=== PATIENT | male | born 1975 | race Caucasian/White ===

== ENCOUNTER 2022-05-17 01:28 | Inpatient (IN) ==
[~2022-05-17 01:28] MED LIST: LORazepam 1 MG/1 ML SYR ONE
[2022-05-17] MEDS ORDERED: PIPERACILLIN/TAZOBACTAM 4.5 GM/120 ML BAG IV ONE (01:44)
[2022-05-17] MEDS ORDERED: SODIUM CHLORIDE 0.9% 1000ML 2,000 ML IV ONE (01:44)
[2022-05-17] MEDS ORDERED: VANCOMYCIN CONSULT ACTIVE PRN (01:44)
[2022-05-17] MEDS ORDERED: VANCOMYCIN HCL 2,250 MG in SODIUM CHLORIDE 0.9% 500 ML IV ONE (01:44)
[2022-05-17] MEDS ORDERED: ACETAMINOPHEN 500 MG TAB PO STA (01:44)
[2022-05-17 01:51] LABS: Basophils # (auto) 0.04 K/uL (0-0.2); Basophils % (auto) 0.3 %; Eosinophils % (auto) 0.7 %; Hematocrit (blood only) 43.4 % (40.1-51.0); Hemoglobin 14.9 g/dl (14.0-18.0); Immature Granulocytes # (auto) 0.09 K/uL (0.00-0.02); Immature Granulocytes % (auto) 0.6 %; Lymphocytes # (auto) 0.73 K/uL (1.2-3.4); Lymphocytes % (auto) 4.9 %; Mean Corpuscular Hemoglobin 32.4 pg (25.0-34.0); Mean Corpuscular Hgb Conc 34.3 g/dL (32.0-36.0); Mean Corpuscular Volume 94.3 fL (80.0-100.0); Mean Platelet Volume 10.3 fL (9.4-12.4); Monocytes # (auto) 0.57 K/uL (0.24-0.82); Monocytes % (auto) 3.9 %; Neutrophils # (auto) 13.25 K/uL (1.4-6.5); Neutrophils % (auto) 89.6 %; Platelet Count 172 K/uL (130-400); RDW Coefficient of Variation 14.4 % (11.5-14.5); RDW Standard Deviation 50.5 fL (36.4-46.3); White Blood Count 14.78 K/ul (4.8-10.8)
[2022-05-17 02:24] LABS: INR 1.2 (0.9-1.1); Partial Thromboplastin Ratio 1.1; Partial Thromboplastin Time 29.9 Seconds (21.0-31.0); Prothrombin Time 12.5 Seconds (9.0-12.0); Troponin I High Sensitivity 19.7 pg/ml (0-20)
[2022-05-17 02:40] LABS: Albumin Globulin Ratio 1.3 (0.9-2); Albumin Level 3.9 gm/dl (3.4-5.0); BUN Creatinine Ratio 10.6 (10-20); Bilirubin,Total 0.6 mg/dl (0.2-1.0); Calcium 7.8 mg/dl (8.5-10.1); Est GFR (African American) 54.1 ml/min; Est GFR (Non-African American) 46.7 ml/min; Magnesium 1.2 mg/dl (1.7-2.4); Potassium 3.5 mmol/L (3.5-5.1); Total Protein 6.9 gm/dl (6.0-8.3)
[2022-05-17 03:08] LABS: Adenovirus PCR Not Detected (NotDetected); Bordetella parapertussis PCR Not Detected (NotDetected); Bordetella pertussis PCR Not Detected (NotDetected); Chlamydia pneumoniae PCR Not Detected (NotDetected); Coronavirus 229E PCR Not Detected (NotDetected); Coronavirus CoV-2 (COVID19)PCR Not Detected (NotDetected); Coronavirus HKU1 PCR Not Detected (NotDetected); Coronavirus NL63 PCR Not Detected (NotDetected); Coronavirus OC43PCR Not Detected (NotDetected); Human Metapneumovirus PCR Not Detected (NotDetected); Influenza A PCR Not Detected (NotDetected); Influenza B PCR Not Detected (NotDetected); Mycoplasma pneumoniae PCR Not Detected (NotDetected); Parainfluenza Virus 1 PCR Not Detected (NotDetected); Parainfluenza Virus 2 PCR Not Detected (NotDetected); Parainfluenza Virus 3 PCR Not Detected (NotDetected); Parainfluenza Virus 4 PCR Not Detected (NotDetected); Respiratory Syncytial VirusPCR Not Detected (NotDetected); Rhinovirus/Enterovirus PCR Not Detected (NotDetected)
--- NOTE | 2022-05-17 03:27 | Emergency Department Note ---
History of Present Illness General Chief complaint: Swelling/Edema to Extremity Time Seen by Provider: 05/17/22 01:40 History of Present Illness Maximum Pain Intensity: 5 This 47-year-old presents to the ER complaining of fever with right lower leg Location: Generalized Quality: Febrile Severity: Moderate Duration: Past few days Timing: Started few days ago Context: Symptoms got worse and patient came in Modifying factors: better with rest; worse with activity Patient denies chest pain, dyspnea, headache, cough, congestion, vomiting, diarrhea. Right leg is quite swollen and erythematous. He denies any history of IV drug abuse. Home Medications Medication Instructions Recorded Confirmed Type ibuprofen 200 mg tablet 600 - 800 mg PO Q6H PRN Pain 01/01/21 01/01/21 History buprenorphine 8 mg-naloxone 2 mg 1 tab sublingual BID 05/17/22 05/17/22 History sublingual tablet Allergies Allergy/AdvReac Type Severity Reaction Status Date / Time No Known Allergies Allergy Verified 01/01/21 16:37 Past Med/Surg History Medical History History of gout Polysubstance abuse Family History Other Family history non-contributory Social History Smoking Status: Never smoker Hx Alcohol Use: Yes Alcohol type: hard liquor Hx Substance Use: Yes (on subutex) Preferred Language: Syriac Communication Ability: Effective Rn Infusion Required: No Beliefs That Will Affect Care: None marital status: Current Living Situation: Significant Other Other Information That Helps Us Care for You: No Feels Safe at Home: Yes Safety Concerns: Feels Safe At This Time Assistive Devices: None Review of Systems A total of 10 systems reviewed and were otherwise negative Physical Exam Vital Signs Vital Signs - 24 hr 05/17/22 02:30 05/17/22 02:30 05/17/22 03:00 Pulse Rate 103 H Pulse Rate from SpO2 Sensor 103 H Blood Pressure 121/66 112/64 Blood Pressure Mean 84 80 Pulse Oximetry 91 05/17/22 03:00 Pulse Rate 104 H Pulse Rate from SpO2 Sensor Blood Pressure Blood Pressure Mean Pulse Oximetry VITALS: Vitals are noted on the nurse's note and reviewed by myself. Vital signs febrile and tachycardic. GENERAL: White male ill-appearing, febrile and tachycardic SKIN: Right leg erythematous and edematous concerning for infection, the rest of the skin was without rashes, erythema, or bruising. There is no tenting of the skin. Capillary reflex less than 2 seconds. HEAD: Normocephalic atraumatic. EARS: External auditory canals clear, EYES: Pupils equal round and reactive to light and accommodation. Conjunctivae without injection, sclerae without icterus. Extraocular movements intact. NOSE: Patent, turbinates without inflammation or discharge. MOUTH: Mucous membranes moist. Pharynx without erythema or exudate. Uvula midline. Airway patent. Tongue does not deviate. NECK: Supple without nuchal rigidity. No lymphadenopathy. No thyromegaly. Cervical spine is nontender. No JVD. HEART: Regular rate and rhythm LUNGS: Clear to auscultation bilaterally without wheezes, rales or rhonchi. No retractions or accessory muscle use. ABDOMEN: Positive bowel sounds x 4. Normal tympanic percussion. Soft, nontender, without masses or organomegaly. Davies sign negative. No guarding or rebound tenderness. No CVA tenderness MUSCULOSKELETAL: No muscle atrophy noted. Pedal pulses +2 equal present bilaterally NEURO: Patient was alert and oriented to person place and time. Normal sensation to light and sharp touch. No focal neurological deficits. Course Administered Medications Buprenorphine/Naloxone (Buprenorphine/Naloxone 8/2 Mg Tab) 1 tab SL BID [facility] Stop: 06/16/22 08:59 Last Admin: 05/17/22 21:35 Dose: 1 tab Documented By: Admin: 05/17/22 08:21 Dose: 1 tab Documented By: VENESSA Diazepam (Diazepam 5 Mg Tablet) 10 mg PO Q6H [facility] Stop: 06/16/22 15:59 Last Admin: 05/17/22 21:34 Dose: Not Given Documented By: Admin: 05/17/22 16:59 Dose: 10 mg Documented By: VENESSA Enoxaparin Sodium (Enoxaparin Inj 40 Mg/0.4 Ml Syr) 40 mg SQ Q12H [facility] Stop: 06/16/22 08:59 Last Admin: 05/17/22 21:35 Dose: 40 mg Documented By: Admin: 05/17/22 08:16 Dose: 40 mg Documented By: VENESSA Gabapentin (Gabapentin 600 Mg Tab) 600 mg PO Q8H [facility] Stop: 05/18/22 19:01 Last Admin: 05/18/22 02:01 Dose: 600 mg Documented By: JETHRO Sodium Chloride (Nss 1000ml) 1,000 mls @ 125 mls/hr IV .Q8H [facility]IN Stop: 06/16/22 06:25 Last Admin: 05/17/22 23:32 Dose: 125 mls/hr Documented By: Infusion: 05/17/22 20:33 Dose: 125 mls/hr Documented By: Infusion: 05/17/22 20:30 Dose: 125 mls/hr Documented By: Admin: 05/17/22 20:02 Dose: Not Given Documented By: Infusion: 05/17/22 16:22 Dose: 0 mls/hr Documented By: Admin: 05/17/22 08:25 Dose: 125 mls/hr Documented By: VENESSA Piperacillin Sod/Tazobactam (Sod 3.375 gm/ Dextrose) 115 mls @ 28.75 mls/hr IV Q8H [facility]IV[facility]; Protocol Stop: 05/24/22 07:59 Last Admin: 05/17/22 23:30 Dose: 28.8 mls/hr Documented By: Infusion: 05/17/22 21:34 Dose: 0 mls/hr Documented By: Admin: 05/17/22 16:59 Dose: 28.8 mls/hr Documented By: Infusion: 05/17/22 12:47 Dose: 0 mls/hr Documented By: Admin: 05/17/22 08:17 Dose: 28.8 mls/hr Documented By: DTT Thiamine HCl 100 mg/ Syringe 10 mls @ 2 mls/min IV QAM KEVIN Stop: 06/16/22 08:59 Last Admin: 05/17/22 08:16 Dose: 2 mls/min Documented By: DTT Folic Acid 1 mg/ Syringe 10 mls @ 5 mls/min IV QAM KEVIN Stop: 06/16/22 08:59 Last Admin: 05/17/22 08:16 Dose: 5 mls/min Documented By: DTT Vancomycin HCl 1,000 mg/ (Sodium Chloride) 270 mls @ 200 mls/hr IV Q12H [facility]; Protocol Stop: 05/24/22 13:59 Last Admin: 05/18/22 02:00 Dose: 200 mls/hr Documented By: Infusion: 05/17/22 16:23 Dose: 0 mls/hr Documented By: Admin: 05/17/22 15:02 Dose: 200 mls/hr Documented By: VENESSA Discontinued Medications Acetaminophen (Acetaminophen 500 Mg Tab) 1,000 mg PO NOW STA Stop: 05/17/22 01:45 Last Admin: 05/17/22 01:51 Dose: 1,000 mg Documented By: CAM Gabapentin (Gabapentin 600 Mg Tab) 1,200 mg PO NOW ONE Stop: 05/17/22 07:01 Last Admin: 05/17/22 08:16 Dose: 1,200 mg Documented By: VENESSA Gabapentin (Gabapentin 600 Mg Tab) 600 mg PO Q6H [facility] Stop: 05/17/22 19:01 Last Admin: 05/17/22 19:41 Dose: 600 mg Documented By: Admin: 05/17/22 13:57 Dose: 600 mg Documented By: VENESSA Sodium Chloride (Nss 1000ml) 2,000 mls @ 999 mls/hr IV .Q2H1M ONE Stop: 05/17/22 03:44 Last Infusion: 05/17/22 05:23 Dose: 0 mls/hr Documented By: Admin: 05/17/22 01:51 Dose: 999 mls/hr Documented By: CAM Piperacillin Sod/Tazobactam Sod (Zosyn) 4.5 gm in 120 mls @ 240 mls/hr IV NOW ONE Stop: 05/17/22 02:13 Last Infusion: 05/17/22 02:28 Dose: 0 mls/hr Documented By: Admin: 05/17/22 01:51 Dose: 240 mls/hr Documented By: CAM Vancomycin HCl 2,250 mg/ (Sodium Chloride) 545 mls @ 200 mls/hr IV NOW ONE Stop: 05/17/22 04:27 Last Infusion: 05/17/22 06:29 Dose: 0 mls/hr Documented By: Admin: 05/17/22 02:28 Dose: 200 mls/hr Documented By: CAM Magnesium Sulfate/Dextrose (Magnesium Sulfate / D5w) 1 gm in 100 mls @ 100 mls/hr IV Q1H KEVIN Stop: 05/17/22 05:43 Last Admin: 05/17/22 08:47 Dose: Not Given Documented By: Infusion: 05/17/22 07:36 Dose: 0 mls/hr Documented By: Admin: 05/17/22 06:28 Dose: 100 mls/hr Documented By: CP Multivitamins 10 ml/ Thiamine HCl 100 mg/ Folic Acid 1 mg/Sodium Chloride 1,011.2 mls @ 500 mls/hr IV .Q2H2M ONE Stop: 05/17/22 08:27 Last Infusion: 05/17/22 09:56 Dose: 0 mls/hr Documented By: Admin: 05/17/22 07:22 Dose: 500 mls/hr Documented By: DTT Magnesium Sulfate/Dextrose (Magnesium Sulfate / D5w) 1 gm in 100 mls @ 100 mls/hr IV ONE ONE Stop: 05/17/22 09:14 Last Infusion: 05/17/22 09:56 Dose: 0 mls/hr Documented By: Admin: 05/17/22 08:31 Dose: 100 mls/hr Documented By: DTT Magnesium Sulfate/Dextrose (Magnesium Sulfate / D5w) 1 gm in 100 mls @ 50 mls/hr IV Q2H KEVIN Stop: 05/17/22 16:44 Last Infusion: 05/17/22 19:37 Dose: 0 mls/hr Documented By: Admin: 05/17/22 16:59 Dose: 50 mls/hr Documented By: Infusion: 05/17/22 16:58 Dose: 0 mls/hr Documented By: Infusion: 05/17/22 16:30 Dose: 0 mls/hr Documented By: Admin: 05/17/22 14:26 Dose: 50 mls/hr Documented By: Infusion: 05/17/22 14:19 Dose: 50 mls/hr Documented By: Admin: 05/17/22 12:19 Dose: 50 mls/hr Documented By: DTT Lorazepam (Lorazepam 1 Mg/1 Ml Syr) Confirm Administered Dose 1 mg .ROUTE .STK- MED ONE Stop: 05/17/22 01:18 Last Admin: 05/17/22 02:20 Dose: Not Given Documented By: CAM Medical Decision Making Medical Records Attestation: I reviewed the patient's medical records. Home Medications Current Medication List: was personally reviewed by me Laboratory Data Attestation: I reviewed the patient's lab results. Result diagrams: 05/17/22 06:57 05/17/22 06:57 Lab Results 05/17/22 05/17/22 05/17/22 Range/Units 01:35 01:35 01:35 WBC 14.78 H (4.8-10.8) K/ul RBC 4.60 L (4.63-6.08) M/uL Hgb 14.9 (14.0-18.0) g/dl Hct 43.4 (40.1-51.0) % MCV 94.3 (80.0-100.0) fL MCH 32.4 (25.0-34.0) pg MCHC 34.3 (32.0-36.0) g/dL RDW Std Deviation 50.5 H (36.4-46.3) fL RDW Coeff of Desiree 14.4 (11.5-14.5) % Plt Count 172 (130-400) K/uL MPV 10.3 (9.4-12.4) fL Immature Gran % (Auto) 0.6 % Neut % (Auto) 89.6 % Lymph % (Auto) 4.9 % [place] % (Auto) 3.9 % Eos % (Auto) 0.7 % Baso % (Auto) 0.3 % Neut # (Auto) 13.25 H (1.4-6.5) K/uL Lymph # (Auto) 0.73 L (1.2-3.4) K/uL [place] # (Auto) 0.57 (0.24-0.82) K/uL Eos # (Auto) 0.10 (0-0.50) K/uL Baso # (Auto) 0.04 (0-0.2) K/uL Immature Gran # (Auto) 0.09 H (0.00-0.02) K/uL PT 12.5 H (9.0-12.0) Seconds INR 1.2 H (0.9-1.1) APTT 29.9 (21.0-31.0) Seconds PTT Ratio 1.1 Sodium 130 L (136-145) mmol/L Potassium 3.5 (3.5-5.1) mmol/L Chloride 98 (98-107) mmol/L Carbon Dioxide 19 L (21-32) mmol/L Anion Gap 13 H (3-11) BUN 18 (6-23) mg/dl Creatinine 1.70 H (0.6-1.4) mg/dl Est Cr Clr Drug Dosing 68.0 ml/min Est GFR ( Amer) 54.1 ml/min Est GFR (Non-Af Amer) 46.7 ml/min BUN/Creatinine Ratio 10.6 (10-20) Glucose 123 H (70-99(Fasting)) mg/dl Calcium 7.8 L (8.5-10.1) mg/dl Magnesium 1.2 L (1.7-2.4) mg/dl Total Bilirubin 0.6 (0.2-1.0) mg/dl AST 25 (13-39) U/L ALT 28 (7-52) U/L Alkaline Phosphatase 44 (34-104) U/L Troponin I High Sens 19.7 (0-20) pg/ml Total Protein 6.9 (6.0-8.3) gm/dl Albumin 3.9 (3.4-5.0) gm/dl Globulin 3.0 (2.5-4.0) gm/dl Albumin/Globulin Ratio 1.3 (0.9-2) Procalcitonin (0-0.5) ng/ml Ethyl Alcohol mg/dL (<10.0) mg/dl Adenovirus (PCR) (NotDetected) B. pertussis DNA (PCR) (NotDetected) B.parapertussis DNA PCR (NotDetected) C. pneumoniae DNA (PCR) (NotDetected) Coronavirus OC43 (PCR) (NotDetected) Coronavirus HKU1 (PCR) (NotDetected) Coronavirus 229E (PCR) (NotDetected) SARS-CoV-2 (PCR) (NotDetected) Coronavirus NL63 (PCR) (NotDetected) Human Metapneumovir PCR (NotDetected) Influenza Type A (PCR) (NotDetected) Influenza Type B (PCR) (NotDetected) M. pneumoniae (PCR) (NotDetected) Parainfluenza 1 (PCR) (NotDetected) Parainfluenza 2 (PCR) (NotDetected) Parainfluenza 3 (PCR) (NotDetected) Parainfluenza 4 (PCR) (NotDetected) RSV (PCR) (NotDetected) Entero/Rhino (PCR) (NotDetected) 05/17/22 05/17/22 05/17/22 Range/Units 01:35 01:50 02:38 WBC (4.8-10.8) K/ul RBC (4.63-6.08) M/uL Hgb (14.0-18.0) g/dl Hct (40.1-51.0) % MCV (80.0-100.0) fL MCH (25.0-34.0) pg MCHC (32.0-36.0) g/dL RDW Std Deviation (36.4-46.3) fL RDW Coeff of Desiree (11.5-14.5) % Plt Count (130-400) K/uL MPV (9.4-12.4) fL Immature Gran % (Auto) % Neut % (Auto) % Lymph % (Auto) % [place] % (Auto) % Eos % (Auto) % Baso % (Auto) % Neut # (Auto) (1.4-6.5) K/uL Lymph # (Auto) (1.2-3.4) K/uL [place] # (Auto) (0.24-0.82) K/uL Eos # (Auto) (0-0.50) K/uL Baso # (Auto) (0-0.2) K/uL Immature Gran # (Auto) (0.00-0.02) K/uL PT (9.0-12.0) Seconds INR (0.9-1.1) APTT (21.0-31.0) Seconds PTT Ratio Sodium (136-145) mmol/L Potassium (3.5-5.1) mmol/L Chloride (98-107) mmol/L Carbon Dioxide (21-32) mmol/L Anion Gap (3-11) BUN (6-23) mg/dl Creatinine (0.6-1.4) mg/dl Est Cr Clr Drug Dosing ml/min Est GFR ( Amer) ml/min Est GFR (Non-Af Amer) ml/min BUN/Creatinine Ratio (10-20) Glucose (70-99(Fasting)) mg/dl Calcium (8.5-10.1) mg/dl Magnesium (1.7-2.4) mg/dl Total Bilirubin (0.2-1.0) mg/dl AST (13-39) U/L ALT (7-52) U/L Alkaline Phosphatase (34-104) U/L Troponin I High Sens (0-20) pg/ml Total Protein (6.0-8.3) gm/dl Albumin (3.4-5.0) gm/dl Globulin (2.5-4.0) gm/dl Albumin/Globulin Ratio (0.9-2) Procalcitonin 4.55 H (0-0.5) ng/ml Ethyl Alcohol mg/dL 86.9 H (<10.0) mg/dl Adenovirus (PCR) Not Detected (NotDetected) B. pertussis DNA (PCR) Not Detected (NotDetected) B.parapertussis DNA PCR Not Detected (NotDetected) C. pneumoniae DNA (PCR) Not Detected (NotDetected) Coronavirus OC43 (PCR) Not Detected (NotDetected) Coronavirus HKU1 (PCR) Not Detected (NotDetected) Coronavirus 229E (PCR) Not Detected (NotDetected) SARS-CoV-2 (PCR) Not Detected (NotDetected) Coronavirus NL63 (PCR) Not Detected (NotDetected) Human Metapneumovir PCR Not Detected (NotDetected) Influenza Type A (PCR) Not Detected (NotDetected) Influenza Type B (PCR) Not Detected (NotDetected) M. pneumoniae (PCR) Not Detected (NotDetected) Parainfluenza 1 (PCR) Not Detected (NotDetected) Parainfluenza 2 (PCR) Not Detected (NotDetected) Parainfluenza 3 (PCR) Not Detected (NotDetected) Parainfluenza 4 (PCR) Not Detected (NotDetected) RSV (PCR) Not Detected (NotDetected) Entero/Rhino (PCR) Not Detected (NotDetected) Imaging Data Attestation: I personally reviewed and interpreted this imaging study as follows: Radiologist's Impression: Chest X-Ray 05/17/22 01:45 XR chest 1V portable CLINICAL HISTORY: fever/sepsis TECHNIQUE: Single frontal radiograph of the chest was obtained. Comparison: None available at the time of this dictation. FINDINGS: No lines and tubes are seen. Cardiomegaly is noted. The lungs are clear. No evidence of pleural effusion or pneumothorax. IMPRESSION: No acute chest disease. ACT 112: Negative or not required by law. Electronically signed by: Jabari Mcdaniel M.D. 05/17/2022 3:57 PM [facility] Narrative Prior records/ancillary studies reviewed. Triage Nursing notes reviewed. Additional history obtained from family. The patient's history was concerning for fever and leg infection. Differential diagnosis: Etiologies such as sepsis, UTI, pneumonia, metabolic, electrolyte abnormalities, cardiac sources, intracerebral event, toxicologic, neurologic, as well as others were entertained. Physical examination: As above. Pertinent findings were fever and leg infection. Vital signs reviewed and revealed febrile and tachycardic. ER treatment provided: IV fluid resuscitation with Normal saline solution, IV fluid Blood and urine cultures Antibiotics: Zosyn vancomycin An order was placed for continuous cardiac monitoring. The monitor shows a rate of 60-1 50 with a sinus rhythm. On reassessment the patient vital signs improved. Diagnostics interpretation by me: ECG: Ordered for sepsis EKG: Normal sinus, left axis, incomplete right bundle, rate of 105. Impression sinus tachycardia incomplete right bundle with left axis deviation interpreted by myself I think arrhythmia is unlikely. EKG shows no interval abnormalities such as QT prolongation or WPW. There are no findings to suggest Brugada syndrome. Cardiac monitoring in the emergency department reveals no tachycardic or bradycardic dysrhythmia. Hypertrophic cardiomyopathy was considered but there are no clear historical elements pointing toward this. EKG is not suggestive. The QRS voltage is not extremely large The labs revealed leukocytosis on CBC. Chemistry panel revealed low magnesium. LFTs revealed. Cardiac enzymes were negative troponin. Elevated procalcitonin Blood and urine cultures are pending. Imaging studies: Chest xray revealed no acute consolidation, pneumothorax or free air per my interpretation Consultation: A consultation was placed with the hospitalist. The case was discussed and diagnostics were reviewed. The patient was evaluated in the ER for further treatment. Exam and history seem consistent with sepsis most likely from the right leg. Medicine was consulted. Patient will be evaluated for admission. Patient was immediately started on antibiotics. He was given Tylenol. He was reassessed multiple times. 2 lines were placed. Patient is agreeable treatment plan of admission. He adamantly denied any history of IV drug abuse. Impression & Plan Sepsis, Cellulitis of leg, right Discharge Plan Visit Data Chief Complaint: Swelling/Edema to Extremity ED Provider: Yulissa Perkins ED Midlevel Provider: Angela Sloan Discharge Problem: Sepsis, Cellulitis of leg, right Patient Disposition: Admitted As Inpatient Condition: Fair Discharge Instructions Interventions: ED Discharge Assessment Last Done: 05/17/22 06:28 : Sepsis Qualifiers: Sepsis type: sepsis due to unspecified organism Sepsis acute organ dysfunction status: unspecified Qualified Code(s): A41.9 - Sepsis, unspecified organism
[2022-05-17] MEDS ORDERED: MULTI-VITAMIN INFUSION 10 ML, THIAMINE HCL 100 MG, FOLIC ACID 1 MG in SODIUM CHLORIDE 0... IV ONE (06:26)
[2022-05-17] MEDS ORDERED: NITROGLYCERIN SL 0.4 MG/TAB TAB SL PRN (06:26)
[2022-05-17] MEDS ORDERED: GABAPENTIN 1200MG ALCOHOL WITHDRAWAL LOAD PO STA (06:26)
[2022-05-17] MEDS ORDERED: LORazepam 3 MG in SYRINGE 0 ML IV PRN (06:26)
[2022-05-17] MEDS ORDERED: LORazepam 2 MG in SYRINGE 0 ML IV PRN (06:26)
[2022-05-17] MEDS ORDERED: Ativan IV Alcohol Withdrawal--Active Protocol IV PRN (06:26)
[2022-05-17] MEDS ORDERED: LORazepam 1 MG in SYRINGE 0 ML IV PRN (06:26)
[2022-05-17] MEDS ORDERED: ACETAMINOPHEN 325 MG TAB PO PRN (06:26)
[2022-05-17] MEDS: MAGNESIUM SULFATE / D5W 1 GM/100 ML BAG IV SCH ×5 (06:28→16:59)
[2022-05-17 06:56] LABS: Appearance Urine Clear (Clear); Bilirubin Urine Negative (Negative); Blood Urine Trace (Negative); Color Urine Yellow; Epithelial Cell Urine Auto 0-5 /lpf (0-5); Glucose Urine UA Negative (Negative); Ketones Urine Trace (Negative); Leukocyte Esterase Urine Negative (Negative); Nitrite Urine Negative (Negative); Protein Urine 1+ (Negative); Urobilinogen Urine Negative (Negative)
[2022-05-17] MEDS ORDERED: GABAPENTIN 600 MG TAB PO ONE (07:00)
[2022-05-17 07:28] LABS: Bacteria Urine Automated 1+ (Negative); RBC Urine Automated 0-4 /hpf (0-4)
[2022-05-17 07:32] LABS: Hematocrit (blood only) 40.9 % (40.1-51.0); Hemoglobin 13.8 g/dl (14.0-18.0); Mean Corpuscular Hemoglobin 31.9 pg (25.0-34.0); Mean Corpuscular Hgb Conc 33.7 g/dL (32.0-36.0); Mean Corpuscular Volume 94.5 fL (80.0-100.0); Mean Platelet Volume 10.5 fL (9.4-12.4); Platelet Count 178 K/uL (130-400); RDW Coefficient of Variation 14.4 % (11.5-14.5); RDW Standard Deviation 50.4 fL (36.4-46.3); Red Blood Count 4.33 M/uL (4.63-6.08); White Blood Count 14.64 K/ul (4.8-10.8)
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
[2022-05-17 07:53] LABS: Basophils # (auto) 0.02 K/uL (0-0.2); Basophils % (auto) 0.1 %; Dohle Bodies 1+; Echinocytes 1+; Immature Granulocytes # (auto) 0.08 K/uL (0.00-0.02); Immature Granulocytes % (auto) 0.5 %; Lymphocytes # (auto) 0.59 K/uL (1.2-3.4); Monocytes # (auto) 0.68 K/uL (0.24-0.82); Monocytes % (auto) 4.6 %; Neutrophils # (auto) 13.27 K/uL (1.4-6.5); Neutrophils % (auto) 90.8 %
[2022-05-17 07:58] LABS: BUN Creatinine Ratio 11.2 (10-20); Calcium 7.1 mg/dl (8.5-10.1); Creatinine Clr Calc Pharmacy 82.2 ml/min; Est GFR (African American) 66.6 ml/min; Est GFR (Non-African American) 57.5 ml/min; Magnesium 1.3 mg/dl (1.7-2.4); Potassium 3.4 mmol/L (3.5-5.1)
[2022-05-17] MEDS ORDERED: MAGNESIUM SULFATE / D5W 1 GM/100 ML BAG IV ONE (08:15)
[2022-05-17] MEDS: THIAMINE HCL 100 MG in SYRINGE 9 ML IV SCH (08:16)
[2022-05-17] MEDS: FOLIC ACID 1 MG in SYRINGE 9.8 ML IV SCH (08:16)
[2022-05-17] MEDS: ENOXAPARIN INJ 40 MG/0.4 ML SYR SQ SCH ×2 (08:16→21:35)
[2022-05-17] MEDS: PIPERACILLIN/TAZOBACTAM 3.375 GM in DEXTROSE 5% 100 ML IV SCH ×3 (08:17→23:30)
--- NOTE | 2022-05-17 08:20 | Ultrasound Report ---
US venous doppler LE BI CLINICAL HISTORY: pain/swelling TECHNIQUE: Bilateral lower extremity real-time compression venous ultrasound with Color Doppler imagi ng. Utilizing real-time ultrasonic imaging multiple real time high-resolution ultrasonic images with compression and noncompression maneuvers of the deep venous system in addition to color doppler imagi ng were performed from the common femoral vein through the proximal calf veins. COMPARISON: None available at the time of this dictation. FINDINGS: Currently there is normal compressibility of the deep venous system from the common femoral vein thro ugh the proximal calf veins. Prominent lymph nodes are seen in the right groin with fatty griffin, durga uring up to 3.6 x 1.7 x 2.8 cm. Bilateral soft tissue edema in the calves, right greater than left. Impression: No evidence of deep venous thrombus. ACT 112: Negative or not required by law. Electronically signed by: Jabari Mcdaniel M.D. 05/17/2022 8:18 AM
[2022-05-17] MEDS: BUPRENORPHINE/NALOXONE 8/2 MG TAB SL SCH ×2 (08:21→21:35)
[2022-05-17] MEDS: SODIUM CHLORIDE 0.9% 1000ML 1,000 ML IV SCH ×4 (08:25→23:32)
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
--- NOTE | 2022-05-17 11:24 | Electrocardiogram Report ---
Test Reason : Blood Pressure : / mmHG Vent. Rate : 105 BPM Atrial Rate : 105 BPM P-R Int : 152 ms QRS Dur : 094 ms QT Int : 334 ms P-R-T Axes : 039 -45 021 degrees QTc Int : 441 ms Sinus tachycardia Left axis deviation Incomplete right bundle branch block Poor R wave progression, consider anterior LA vs. lead placement vs. LVH Abnormal ECG When compared with ECG of 01-JAN-2021 18:30, Vent. rate has increased BY 42 BPM Incomplete right bundle branch block is now Present R wave progression more gradual Confirmed by Javier Stone ([id number] on 05/17/2022 11:24:21 AM Referred By: NO PCP Confirmed By:Javier Stone
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
[2022-05-17] MEDS: GABAPENTIN 600 MG TAB PO SCH ×2 (13:57→19:41)
[2022-05-17] MEDS: VANCOMYCIN HCL 1,000 MG in SODIUM CHLORIDE 0.9% 250 ML IV SCH (15:02)
--- NOTE | 2022-05-17 15:58 | XRay Report ---
XR chest 1V portable CLINICAL HISTORY: fever/sepsis TECHNIQUE: Single frontal radiograph of the chest was obtained. Comparison: None available at the time of this dictation. FINDINGS: No lines and tubes are seen. Cardiomegaly is noted. The lungs are clear. No evidence of pleural effus ion or pneumothorax. IMPRESSION: No acute chest disease. ACT 112: Negative or not required by law. Electronically signed by: Jabari Mcdaniel M.D. 05/17/2022 3:57 PM
[2022-05-17] MEDS: diazePAM 5 MG TABLET PO SCH ×2 (16:59→21:34)
[2022-05-17 18:36] LABS: Creatinine Urine Random 78.3 mg/dl; Protein Creatinine Ratio Urine 0.5 (0-0.2)
--- NOTE | 2022-05-17 19:57 | CT Scan Report ---
CT tib/fib RT wo con CLINICAL HISTORY: Concern for abscess TECHNIQUE: Multidetector row helical CT of the right lower extremity was performed without intravenou s contrast. Coronal and sagittal reformations were obtained. Automated dose lowering techniques and/o r adjustment according to patient size were utilized for this examination. Comparison: Comparison is made to bone survey ultrasound 05/17/2022 FINDINGS: The osseous structures are without fracture or dislocation. The joint spaces are maintained. No joint effusion is seen. Soft tissue stranding is seen. No evidence of drainable fluid collection. Degener ative changes are seen within the bones but there are no focal erosions. IMPRESSION: Soft tissue stranding is seen compatible with cellulitis but there is no evidence of abscess or osteo myelitis. ACT 112: Negative or not required by law. Electronically signed by: Jabari Mcdaniel M.D. 05/17/2022 7:55 PM
--- NOTE | 2022-05-17 22:35 | Ultrasound Report ---
US renal/blad retro comp CLINICAL HISTORY: FRANCIS TECHNIQUE: Multiple sonographic real-time images of the kidneys and bladder were obtained. COMPARISON: Comparison is made to FINDINGS: The right kidney measures 12.9 cm in length, and the left kidney measures 11.0 cm in length. The right kidney is normal in size, contour, cortical thickness, and echogenicity. No hydronephrosis is identified. No renal lesion is identified. No perinephric fluid collection is seen. Lobular contour of the left kidney is seen. An inferior pole cyst measures 1.0 x 1.4 x 1.0 cm. A few vascular calcifications are seen. Questionable nonobstructive stone is noted in the collecting system . No hydronephrosis is identified. No renal lesion is identified. No perinephric fluid collection i s seen. The bladder is partially distended. No large intraluminal mass is seen. IMPRESSION: Unremarkable examination and in particular no evidence of hydronephrosis. Lobular contour of the left kidney with possible nonobstructive stone noted. ACT 112: Negative or not required by law. Electronically signed by: Jabari Mcdaniel M.D. 05/17/2022 10:34 PM
[2022-05-18] MEDS: VANCOMYCIN HCL 1,000 MG in SODIUM CHLORIDE 0.9% 250 ML IV SCH (02:00)
[2022-05-18] MEDS: GABAPENTIN 600 MG TAB PO SCH ×3 (02:01→19:26)
[2022-05-18] MEDS: diazePAM 5 MG TABLET PO SCH ×3 (03:38→17:33)
[2022-05-18] MEDS: SODIUM CHLORIDE 0.9% 1000ML 1,000 ML IV SCH ×3 (06:35→21:32)
[2022-05-18 07:50] LABS: Hematocrit (blood only) 38.3 % (40.1-51.0); Mean Corpuscular Hgb Conc 33.9 g/dL (32.0-36.0); Mean Corpuscular Volume 94.3 fL (80.0-100.0); Mean Platelet Volume 10.5 fL (9.4-12.4); Platelet Count 128 K/uL (130-400); RDW Coefficient of Variation 14.7 % (11.5-14.5); RDW Standard Deviation 51.6 fL (36.4-46.3); Red Blood Count 4.06 M/uL (4.63-6.08); White Blood Count 9.26 K/ul (4.8-10.8)
[2022-05-18 08:10] LABS: Basophils # (auto) 0.04 K/uL (0-0.2); Basophils % (auto) 0.4 %; Echinocytes 1+; Eosinophils # (auto) 0.05 K/uL (0-0.50); Eosinophils % (auto) 0.5 %; Immature Granulocytes # (auto) 0.06 K/uL (0.00-0.02); Immature Granulocytes % (auto) 0.6 %; Lymphocytes # (auto) 0.83 K/uL (1.2-3.4); Monocytes # (auto) 0.86 K/uL (0.24-0.82); Monocytes % (auto) 9.3 %; Neutrophils # (auto) 7.42 K/uL (1.4-6.5); Neutrophils % (auto) 80.2 %
[2022-05-18 08:20] LABS: BUN Creatinine Ratio 8.7 (10-20); C Reactive Protein 26.6 mg/dl (0-0.5); Calcium 6.8 mg/dl (8.5-10.1); Est GFR (African American) 37.7 ml/min; Est GFR (Non-African American) 32.5 ml/min; Potassium 3.5 mmol/L (3.5-5.1)
[2022-05-18] MEDS: PIPERACILLIN/TAZOBACTAM 3.375 GM in DEXTROSE 5% 100 ML IV SCH (08:57)
[2022-05-18] MEDS: FOLIC ACID 1 MG in SYRINGE 9.8 ML IV SCH (08:58)
[2022-05-18] MEDS: THIAMINE HCL 100 MG in SYRINGE 9 ML IV SCH (08:59)
[2022-05-18] MEDS: ENOXAPARIN INJ 40 MG/0.4 ML SYR SQ SCH ×2 (09:00→21:31)
[2022-05-18] MEDS: BUPRENORPHINE/NALOXONE 8/2 MG TAB SL SCH ×2 (09:23→21:31)
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
[2022-05-18] MEDS: DOXYCYCLINE HYCLATE 100 MG CAP PO SCH ×2 (13:36→21:30)
[2022-05-18] MEDS: ceFAZolin 2000MG 2,000 MG/15 ML SYR IV SCH ×2 (16:15→23:47)
[2022-05-18] MEDS ORDERED: diazePAM 5 MG TABLET PO SCH (17:30)
[2022-05-19] MEDS: diazePAM 5 MG TABLET PO SCH ×3 (01:33→20:42)
[2022-05-19] MEDS: SODIUM CHLORIDE 0.9% 1000ML 1,000 ML IV SCH ×2 (05:35→15:51)
[2022-05-19 06:39] LABS: Hematocrit (blood only) 37.7 % (40.1-51.0); Hemoglobin 12.6 g/dl (14.0-18.0); Mean Corpuscular Hemoglobin 31.7 pg (25.0-34.0); Mean Corpuscular Hgb Conc 33.4 g/dL (32.0-36.0); Mean Platelet Volume 10.2 fL (9.4-12.4); Platelet Count 106 K/uL (130-400); RDW Coefficient of Variation 14.9 % (11.5-14.5); RDW Standard Deviation 52.7 fL (36.4-46.3); Red Blood Count 3.97 M/uL (4.63-6.08); White Blood Count 8.88 K/ul (4.8-10.8)
[2022-05-19 06:52] LABS: Basophils # (auto) 0.04 K/uL (0-0.2); Basophils % (auto) 0.5 %; Echinocytes 1+; Eosinophils % (auto) 1.1 %; Immature Granulocytes % (auto) 1.1 %; Lymphocytes # (auto) 0.81 K/uL (1.2-3.4); Lymphocytes % (auto) 9.1 %; Monocytes # (auto) 0.89 K/uL (0.24-0.82); Neutrophils # (auto) 6.94 K/uL (1.4-6.5); Neutrophils % (auto) 78.2 %; Polychromasia 1+
[2022-05-19 06:53] LABS: Albumin Globulin Ratio 1.1 (0.9-2); Albumin Level 3.2 gm/dl (3.4-5.0); BUN Creatinine Ratio 8.1 (10-20); Bilirubin,Total 0.8 mg/dl (0.2-1.0); Calcium 6.8 mg/dl (8.5-10.1); Creatinine Clr Calc Pharmacy 46.4 ml/min; Est GFR (African American) 32.7 ml/min; Est GFR (Non-African American) 28.2 ml/min; Globulin 2.9 gm/dl (2.5-4.0); Potassium 3.9 mmol/L (3.5-5.1); Total Protein 6.1 gm/dl (6.0-8.3)
[2022-05-19] MEDS: BUPRENORPHINE/NALOXONE 8/2 MG TAB SL SCH ×2 (08:01→20:42)
[2022-05-19] MEDS: GABAPENTIN 600 MG TAB PO SCH ×2 (08:01→18:20)
[2022-05-19] MEDS: DOXYCYCLINE HYCLATE 100 MG CAP PO SCH ×2 (08:01→20:42)
[2022-05-19] MEDS: THIAMINE HCL 100 MG in SYRINGE 9 ML IV SCH (08:02)
[2022-05-19] MEDS: ENOXAPARIN INJ 40 MG/0.4 ML SYR SQ SCH ×2 (08:02→20:42)
[2022-05-19] MEDS: FOLIC ACID 1 MG in SYRINGE 9.8 ML IV SCH (08:02)
[2022-05-19] MEDS: ceFAZolin 2000MG 2,000 MG/15 ML SYR IV SCH ×3 (08:09→23:33)
[2022-05-19] MEDS ORDERED: STAT IV STA (10:50)
[2022-05-19] MEDS ORDERED: CALCIUM GLUCONATE 10% 2,000 MG in DEXTROSE 5% 50 ML IV ONE (11:00)
[2022-05-19] MEDS: MAGNESIUM SULFATE / D5W 1 GM/100 ML BAG IV SCH ×2 (11:18→13:33)
--- NOTE | 2022-05-19 11:44 | Consultation Report ---
NEPHROLOGY CONSULTATION NOTE DATE OF SERVICE: 05/19/2022. REASON FOR CONSULTATION: Acute renal failure. HISTORY OF PRESENT ILLNESS: The patient is a 47-year-old male who does not have a lot of medical records and does not have a stable PCP, but appears that he already has somewhat abnormal baseline creatinine. He presented to the hospital 2 days ago with fever, chills, right lower extremity edema, pain and redness. The patient has known hypertension, but he is not taking any medication. He does drink bourbon every night. To his knowledge, he has never known to have any kidney disease. In the Emergency Department, his blood pressure was fine, but he was tachycardic and definitely had fever. His white count was elevated. Magnesium was low. Alcohol level was high. Since being admitted, the patient has received IV fluid as well as alcohol withdrawal protocol, but despite that creatinine has actually got worse and is now up to 2.58. He is making urine and yesterday in a 24-hour time period, he made 2110 mL of urine. Currently, he is getting Ancef and doxycycline for antibiotics. He did receive vancomycin on the day of admission, but not now. Urine was checked and he does have some trace blood and trace protein. Renal ultrasound already done and does not have any hydronephrosis. PAST MEDICAL AND SURGICAL HISTORY: Includes ongoing alcoholism, obesity, hypertension, but not taking any medication. Small skin cancer lesion excision, right ankle surgery. MEDICATIONS: At home include buprenorphine 1 tablet sublingual twice daily. FAMILY HISTORY: No renal disease or dialysis. SOCIAL HISTORY: Smoking many years ago, but he drinks bourbon whiskey 4-5 shots every day. Denies drugs. Denies marijuana. REVIEW OF SYSTEMS: As detailed in HPI; unless stated otherwise, 12 systems reviewed and negative. ALLERGIES: No known drug allergies. PHYSICAL EXAMINATION: GENERAL: Young white male who is awake, alert, oriented x3. He is somewhat obese. VITAL SIGNS: Blood pressure 129/72, pulse rate 89, temperature 37.1, 95% on room air. HEENT: Mucous membranes are moist. NECK: Supple. No jugular venous distention. CHEST: Bilaterally clear to auscultation. CARDIOVASCULAR: S1 and S2, regular. ABDOMEN: Soft, nontender, obese. EXTREMITIES: Show 1+ edema with significant redness in his right lower extremity, which according to the patient, is new. Left extremity has trace edema, but no redness. NEUROLOGIC: Awake, alert and oriented. Normal speech. Moving all 4 extremities. LABORATORY TEST: Creatinine was 1.43 two days ago, but since then it has gone up to 2.29 and then now today is 2.58, sodium 135, potassium 3.9, calcium is low at 6.8. Magnesium was low at 1.3, albumin 3.2. WBC count is 8.8, hemoglobin 12.6, platelet count 106. Urine at admission showed trace blood, 1+ protein, urine sodium 30. ASSESSMENT AND PLAN: A 47-year-old male, now admitted with possible cellulitis of the right lower extremity with sepsis-like syndrome and now has acute renal failure for which I have been consulted. 1. Acute renal failure: This is toxic ATN in the setting of infection/antibiotics. He is definitely not volume depleted and we do need too aggressively give him more IV fluid. We can cut down the fluid rate to 75 mL per hour and even that is questionable. His calcium is low and almost certainly related with low magnesium from his ongoing daily alcohol use. I would give him 2 grams of IV magnesium as well as 2 gram of calcium gluconate today. It is not clear how far the kidney function will decline. However, given his young age and heavy buildup, he can tolerate a much, much higher creatinine before we have to consider dialysis. No further workup is needed as we have already done renal ultrasound and he does not have hydronephrosis. Thank you very much for the consult. Job ID: [id number] [facility] CENTERAmy
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
[2022-05-20] MEDS: SODIUM CHLORIDE 0.9% 1000ML 1,000 ML IV SCH ×3 (05:11→19:40)
[2022-05-20 06:55] LABS: Hematocrit (blood only) 35.8 % (40.1-51.0); Hemoglobin 12.5 g/dl (14.0-18.0); Mean Corpuscular Hgb Conc 34.9 g/dL (32.0-36.0); Mean Corpuscular Volume 91.6 fL (80.0-100.0); Mean Platelet Volume 11.5 fL (9.4-12.4); Platelet Count 114 K/uL (130-400); RDW Coefficient of Variation 14.6 % (11.5-14.5); RDW Standard Deviation 49.2 fL (36.4-46.3); Red Blood Count 3.91 M/uL (4.63-6.08); White Blood Count 10.06 K/ul (4.8-10.8)
[2022-05-20 07:11] LABS: BUN Creatinine Ratio 8.4 (10-20); Calcium 7.4 mg/dl (8.5-10.1); Creatinine Clr Calc Pharmacy 59.8 ml/min; Est GFR (African American) 43.6 ml/min; Est GFR (Non-African American) 37.6 ml/min; Potassium 3.8 mmol/L (3.5-5.1)
[2022-05-20 07:14] LABS: Phosphorus 1.5 mg/dl (2.5-4.9)
[2022-05-20] MEDS ORDERED: POTASSIUM PHOS 3 MMOL/1 ML INFUSION IV STA (07:28)
[2022-05-20] MEDS ORDERED: POTASSIUM PHOSPHATE 30 MMOL in SODIUM CHLORIDE 0.9% 500 ML IV ONE (08:00)
[2022-05-20] MEDS: FOLIC ACID 1 MG in SYRINGE 9.8 ML IV SCH (08:41)
[2022-05-20] MEDS: THIAMINE HCL 100 MG in SYRINGE 9 ML IV SCH (08:42)
[2022-05-20] MEDS: DOXYCYCLINE HYCLATE 100 MG CAP PO SCH ×2 (08:43→20:22)
[2022-05-20] MEDS: diazePAM 5 MG TABLET PO SCH (08:43)
[2022-05-20] MEDS: BUPRENORPHINE/NALOXONE 8/2 MG TAB SL SCH ×2 (08:43→20:22)
[2022-05-20] MEDS: ENOXAPARIN INJ 40 MG/0.4 ML SYR SQ SCH ×2 (08:43→20:22)
[2022-05-20] MEDS: ceFAZolin 2000MG 2,000 MG/15 ML SYR IV SCH ×2 (08:43→16:20)
--- NOTE | 2022-05-20 10:38 | Nephrology Progress Note ---
Date of Service May 20, 2022 Assessment & Plan Admission and Anticipated Discharge Date Admission Date: May 17, 2022 Subjective S--eager to go home. No new issues. PHYSICAL EXAMINATION: GENERAL: Young white male who is awake, alert, oriented x3. He is somewhat obese. HEENT: Mucous membranes are moist. NECK: Supple. No jugular venous distention. CHEST: Bilaterally clear to auscultation. CARDIOVASCULAR: S1 and S2, regular. ABDOMEN: Soft, nontender, obese. EXTREMITIES: Show 1+ edema with significant redness in his right lower extremity, which according to the patient, is new. Left extremity has trace edema, but no redness. NEUROLOGIC: Awake, alert and oriented. Normal speech. Moving all 4 extremities. LABORATORY TEST: Creatinine was 1.43 few days ago, but since then it has gone up to 2.29 and then 2.58. But today Creat is down a bit. Low phos. ASSESSMENT AND PLAN: A 47-year-old male, now admitted with possible cellulitis of the right lower extremity with sepsis-like syndrome and now has acute renal failure for which I have been consulted. 1. Acute renal failure: This is toxic ATN in the setting of infection/antibiotics. Creat peaked and now trending down. His calcium is low and almost certainly related with low magnesium from his ongoing daily alcohol use. No further workup is needed as we have already done renal ultrasound and he does not have hydronephrosis. Given how low his mag and phos has been almost certain that his daily alcohol intake is massive and lot more than he is admitting. Agree with kphos 30 mmol ARF will get better from now on. Prefer he stays one more day to correct lytes but if he really wants to go home we can send with oral K phos and Oral mag. renal f/u in 1 week. Did not really have any regular medical care before admission. Results & Data ([facility]) Vital Signs (Past 12 Hours) Vital Signs Temp Pulse Pulse Resp BP BP Pulse Ox 05/20/22 08:00 36.6 C 88 18 147/85 H 92 05/20/22 08:00 98 H 05/20/22 08:00 05/20/22 03:06 37.3 C 91 H 18 141/78 H 91 05/19/22 23:38 36.6 C 84 18 132/84 94 O2 Del Method 05/20/22 08:00 Room Air 05/20/22 08:00 05/20/22 08:00 Room Air 05/20/22 03:06 Room Air 05/19/22 23:38 Room Air
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
[2022-05-20] MEDS ORDERED: GABAPENTIN 600 MG TAB PO SCH (19:00)
[2022-05-21] MEDS: ceFAZolin 2000MG 2,000 MG/15 ML SYR IV SCH ×3 (00:20→16:46)
[2022-05-21] MEDS: SODIUM CHLORIDE 0.9% 1000ML 1,000 ML IV SCH (04:48)
[2022-05-21 06:51] LABS: Hematocrit (blood only) 35.7 % (40.1-51.0); Mean Corpuscular Hemoglobin 31.8 pg (25.0-34.0); Mean Corpuscular Hgb Conc 33.6 g/dL (32.0-36.0); Mean Corpuscular Volume 94.7 fL (80.0-100.0); Mean Platelet Volume 11.8 fL (9.4-12.4); Nucleated RBC # (auto) 0.02 K/uL (0-0); Nucleated RBC % (auto) 0.2 %; Platelet Count 158 K/uL (130-400); RDW Coefficient of Variation 14.6 % (11.5-14.5); RDW Standard Deviation 51.2 fL (36.4-46.3); Red Blood Count 3.77 M/uL (4.63-6.08); White Blood Count 10.21 K/ul (4.8-10.8)
[2022-05-21 07:24] LABS: BUN Creatinine Ratio 8.6 (10-20); Calcium 7.4 mg/dl (8.5-10.1); Creatinine Clr Calc Pharmacy 61.6 ml/min; Est GFR (African American) 45.2 ml/min; Magnesium 1.9 mg/dl (1.7-2.4); Phosphorus 2.4 mg/dl (2.5-4.9); Potassium 3.9 mmol/L (3.5-5.1)
[2022-05-21] MEDS: FOLIC ACID 1 MG in SYRINGE 9.8 ML IV SCH (08:47)
[2022-05-21] MEDS: THIAMINE HCL 100 MG in SYRINGE 9 ML IV SCH (08:47)
[2022-05-21] MEDS: DOXYCYCLINE HYCLATE 100 MG CAP PO SCH (08:48)
[2022-05-21] MEDS: ENOXAPARIN INJ 40 MG/0.4 ML SYR SQ SCH (08:48)
[2022-05-21] MEDS: BUPRENORPHINE/NALOXONE 8/2 MG TAB SL SCH (08:48)
[2022-05-21] MEDS ORDERED: diazePAM 5 MG TABLET PO SCH (09:00)
[2022-05-21] MEDS ORDERED: POTASSIUM PHOS 3 MMOL/1 ML INFUSION IV STA (11:05)
--- NOTE | 2022-05-21 11:08 | Nephrology Progress Note ---
Date of Service May 21, 2022 Assessment & Plan Admission and Anticipated Discharge Date Admission Date: May 17, 2022 Subjective Subjective S-- No new issues. urine is good. Labs better PHYSICAL EXAMINATION: GENERAL: Young white male who is awake, alert, oriented x3. He is somewhat obese. HEENT: Mucous membranes are moist. NECK: Supple. No jugular venous distention. CHEST: Bilaterally clear to auscultation. CARDIOVASCULAR: S1 and S2, regular. ABDOMEN: Soft, nontender, obese. EXTREMITIES: Show 1+ edema with significant redness in his right lower extremity, which according to the patient, is new. Left extremity has trace edema, but no redness. NEUROLOGIC: Awake, alert and oriented. Normal speech. Moving all 4 extremities. LABORATORY TEST: Creatinine was 1.43 few days ago, but since then it has gone up to 2.29 and then 2.58. But today Creat is down a bit. Low phos. ASSESSMENT AND PLAN: A 47-year-old male, now admitted with possible cellulitis of the right lower extremity with sepsis-like syndrome and now has acute renal failure for which I have been consulted. 1. Acute renal failure: This is toxic ATN in the setting of infection/an tibiotics. Creat peaked and now trending down. His calcium is low and almost certainly related with low magnesium from his ongoing daily alcohol use. No further workup is needed as we have already done renal ultrasound and he does not have hydronephrosis. Given how low his mag and phos has been almost certain that his daily alcohol intake is massive and lot more than he is admitting. Kphos 15 mmol ARF will get better from now on. renal f/u in 1 week. Did not really have any regular medical care before admission. discharge as per primary team based on the status of his LE cellulitis/Abx/ID consult Results & Data ([facility]) Vital Signs (Past 12 Hours) Vital Signs Temp Pulse Pulse Resp BP BP Pulse Ox 05/21/22 07:35 87 05/21/22 07:34 37.1 C 78 18 153/87 H 94 05/21/22 03:13 37.2 C 83 16 144/81 H 95 05/20/22 23:23 36.5 C 80 18 143/81 H 93 O2 Del Method 05/21/22 07:35 05/21/22 07:34 Room Air 05/21/22 03:13 Room Air 05/20/22 23:23 Room Air
[2022-05-21] MEDS ORDERED: POTASSIUM PHOSPHATE 15 MMOL in SODIUM CHLORIDE 0.9% 250 ML IV ONE (11:30)
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
== END 2022-05-21 18:29 | disposition home or self-care (01) | DRG 871 ==
LOC: ED 01:28 → 2S 04:28 → SUATTDRO 04:28 → 2S 06:28